=== PATIENT | female | born 1965 | race Hispanic/Latino ===

== ENCOUNTER 2022-07-19 11:23 | Inpatient (IN) | payer MEDICAID, OTHER ==
[~2022-07-19] VITALS: Ht 154.9 cm; Wt 51.7 kg
[~2022-07-19 11:23] MED LIST: BENAZEPRIL HCL10 MG PO; CIPRO250 MG; DICYCLOMINE HCL20 MG PO; GUIATUSS AC SY120 ML; LEVOTHYROXINE25 MCG PO; LEVOTHYROXINE75 MCG PO; LISINOPRIL10 MG PO; LOMOTIL TABLET1 EACH PO; LORATADINE10 MG PO; MAGNESIUM500 MG PO; MEDROL4 MG/DOSE-; METHOCARBAMOL750 MG PO; NAPROXEN500 M1 PO; OMEGA 3 FISH O1 EACH PO; PAROXETINE HCL10 MG PO; PHENERGAN25 MG/1 ML PO; PRILOSEC20 MG PO; VITAMIN D35000 UNIT PO; ZINC CARNOSINE PO
[2022-07-19] MEDS ORDERED: SODIUM CHLORIDE FLUSH 10 ML SYR IV PRN (11:30)
[2022-07-19 11:45] LABS: BASOPHILS # (AUTO) 0.1 (0.0-0.1); EOSINOPHILS # (AUTO) 0.2 (0.0-0.4); EOSINOPHILS % 2.5 % (0.0-6.0); HEMATOCRIT 43.5 % (34.2-44.1); HEMOGLOBIN 15.2 g/dL (12.0-16.0); LYMPHOCYTES # (AUTO) 1.8 (1.0-3.2); LYMPHOCYTES % 27.1 % (18.0-39.1); MEAN CORPUSCULAR HEMOGLOBIN 32.4 pg (28-32); MEAN CORPUSCULAR HGB CONC 34.9 g/dL (31-35); MEAN CORPUSCULAR VOLUME 92.8 fL (81-99); MONOCYTES # (AUTO) 0.7 (0.2-0.8); MONOCYTES % 10.3 % (4.4-11.3); NEUTROPHILS # (AUTO) 3.9 (2.1-6.9); NEUTROPHILS % 58.7 % (38.7-80.0); PLATELET COUNT 205 x10e3/uL (140-360); RED BLOOD COUNT 4.69 x10e6/uL (3.6-5.1); RED CELL DISTRIBUTION WIDTH 12.3 % (11.7-14.4)
[2022-07-19] MEDS ORDERED: ASPIRIN 81 MG CHEW TAB PO ONE ×2 (11:45→15:15)
[2022-07-19 12:15] LABS: ALBUMIN 4.1 g/dL (3.5-5.0); ALBUMIN/GLOBULIN RATIO 1.3 (0.8-2.0); ANION GAP 15.3 mmol/L (8-16); CALCIUM 9.4 mg/dL (8.4-10.2); CREATININE, SERUM 0.66 mg/dL (0.57-1.11); POTASSIUM 4.3 mmol/L (3.5-5.1)
[2022-07-19] MEDS ORDERED: IOPAMIDOL 370 MG/ML 100 ML INFUS..BTL INJ ONE (12:39)
[2022-07-19] MEDS ORDERED: SODIUM CHLORIDE FLUSH 10 ML SYR INJ PRN (15:15)
[2022-07-19] MEDS ORDERED: Morphine 2mg Syringe 2 MG/ML SYR IV PRN (15:15)
[2022-07-19] MEDS: ONDANSETRON HCL INJ 2MG/ML 2ML 2 MG/ML VIAL IV PRN (15:31)
[2022-07-19] MEDS: HYDROCODONE/APAP 5MG-325MG TAB PO PRN ×2 (15:40→22:55)
[2022-07-19 16:07] LABS: CREATINE KINASE 75 IU/L (29-168)
[2022-07-19 17:40] VITALS: BP 131/78; PULSE 77; RESP 16; TEMP 97.7; O2SAT 100
[2022-07-19] MEDS ORDERED: ALBUTEROL2.5 MG/3 M (18:38)
[2022-07-19] MEDS ORDERED: OMEPRAZOLE40 MG PO (18:38)
[2022-07-19] MEDS ORDERED: VENTOLIN HFA18 GM INH (18:38)
[2022-07-19] MEDS ORDERED: ADVAIR 500/501 EA INH (18:38)
[2022-07-19] MEDS ORDERED: HYDROCODON-ACE1 EA12 PO (18:38)
[2022-07-19] MEDS ORDERED: BACLOFEN20 MG PO (18:38)
[2022-07-19] MEDS ORDERED: ATORVASTATIN CA10 MG PO (18:38)
[2022-07-19] MEDS ORDERED: VITAMIN D250 MCG PO (18:38)
[2022-07-19] MEDS ORDERED: PROVENTIL HFA6.7 GM INH (18:38)
[2022-07-19] MEDS ORDERED: LEVSIN0.125 MG PO (18:38)
[2022-07-19] MEDS ORDERED: HYDROXYZINE HCL25 MG PO (18:38)
[2022-07-19] MEDS ORDERED: LEVOTHYROXINE88 MCG PO (18:38)
[2022-07-19] MEDS ORDERED: LISINOPRIL5 MG PO (18:38)
[2022-07-19] MEDS ORDERED: ONDANSETRON ODT8 MG PO (18:38)
[2022-07-19 20:08] VITALS: BP 117/75; PULSE 77; RESP 18; TEMP 98.2; O2SAT 98
[2022-07-19] MEDS: ATORVASTATIN 40 MG TAB PO SCH ×3 (20:40→21:00)
[2022-07-20] VITALS (7 sets, daily range): BP systolic 98–130; BP diastolic 65–81; PULSE 67–75; RESP 17–20; TEMP 97.8–98.8; O2SAT 97–100
[2022-07-20] MEDS: ONDANSETRON HCL INJ 2MG/ML 2ML 2 MG/ML VIAL IV PRN ×4 (03:48→21:04)
[2022-07-20] MEDS: HYDROCODONE/APAP 5MG-325MG TAB PO PRN ×3 (05:43→21:04)
[2022-07-20 05:57] LABS: BASOPHILS # (AUTO) 0.1 (0.0-0.1); BASOPHILS % 1.3 % (0.0-1.0); EOSINOPHILS # (AUTO) 0.3 (0.0-0.4); EOSINOPHILS % 5.6 % (0.0-6.0); HEMATOCRIT 42.6 % (34.2-44.1); HEMOGLOBIN 14.4 g/dL (12.0-16.0); LYMPHOCYTES # (AUTO) 2.2 (1.0-3.2); LYMPHOCYTES % 40.2 % (18.0-39.1); MEAN CORPUSCULAR HGB CONC 33.8 g/dL (31-35); MEAN CORPUSCULAR VOLUME 94.7 fL (81-99); MONOCYTES # (AUTO) 0.6 (0.2-0.8); MONOCYTES % 10.3 % (4.4-11.3); NEUTROPHILS # (AUTO) 2.3 (2.1-6.9); PLATELET COUNT 197 x10e3/uL (140-360); RED CELL DISTRIBUTION WIDTH 12.3 % (11.7-14.4)
[2022-07-20 06:28] LABS: ALBUMIN 3.8 g/dL (3.5-5.0); ALBUMIN/GLOBULIN RATIO 1.2 (0.8-2.0); CALCIUM 9.3 mg/dL (8.4-10.2); CREATININE, SERUM 0.67 mg/dL (0.57-1.11)
[2022-07-20 06:57] LABS: CREATINE KINASE MB 0.7 ng/mL (0-5.0)
[2022-07-20] MEDS: ATORVASTATIN 40 MG TAB PO SCH (21:00)
[2022-07-21] VITALS (10 sets, daily range): BP systolic 98–129; BP diastolic 61–85; PULSE 66–82; RESP 17–20; TEMP 97.1–98.6; O2SAT 96–100
[2022-07-21] MEDS: HYDROCODONE/APAP 5MG-325MG TAB PO PRN ×4 (03:03→21:48)
[2022-07-21] MEDS: ONDANSETRON HCL INJ 2MG/ML 2ML 2 MG/ML VIAL IV PRN ×4 (03:18→21:48)
[2022-07-21 06:51] LABS: BASOPHILS # (AUTO) 0.1 (0.0-0.1); BASOPHILS % 1.3 % (0.0-1.0); EOSINOPHILS # (AUTO) 0.3 (0.0-0.4); EOSINOPHILS % 4.8 % (0.0-6.0); HEMATOCRIT 43.5 % (34.2-44.1); HEMOGLOBIN 14.6 g/dL (12.0-16.0); LYMPHOCYTES # (AUTO) 2.4 (1.0-3.2); LYMPHOCYTES % 34.4 % (18.0-39.1); MEAN CORPUSCULAR HEMOGLOBIN 31.7 pg (28-32); MEAN CORPUSCULAR HGB CONC 33.6 g/dL (31-35); MEAN CORPUSCULAR VOLUME 94.6 fL (81-99); MONOCYTES # (AUTO) 0.7 (0.2-0.8); MONOCYTES % 10.5 % (4.4-11.3); NEUTROPHILS # (AUTO) 3.4 (2.1-6.9); NEUTROPHILS % 48.4 % (38.7-80.0); PLATELET COUNT 210 x10e3/uL (140-360); RED CELL DISTRIBUTION WIDTH 12.1 % (11.7-14.4)
[2022-07-21 07:06] LABS: CREATINE KINASE MB 0.7 ng/mL (0-5.0)
[2022-07-21 07:07] LABS: ALBUMIN/GLOBULIN RATIO 1.3 (0.8-2.0); ANION GAP 12.9 mmol/L (8-16); CALCIUM 9.3 mg/dL (8.4-10.2); CREATININE, SERUM 0.76 mg/dL (0.57-1.11); POTASSIUM 3.9 mmol/L (3.5-5.1)
[2022-07-21] MEDS ORDERED: HYOSCYAMINE 0.125 MG TAB PO PRN (16:15)
[2022-07-21] MEDS ORDERED: HYDROXYZINE HCL 25 MG TAB PO PRN (16:15)
[2022-07-21] MEDS: SALMETEROL/FLUTICASONE 500/50 INH SCH ×2 (17:00→20:40)
[2022-07-21] MEDS: PANTOPRAZOLE SOD 40 MG TABEC PO SCH (17:30)
[2022-07-21] MEDS: ATORVASTATIN 40 MG TAB PO SCH (20:38)
[2022-07-21] MEDS: BACLOFEN 10 MG TAB PO SCH (20:39)
[2022-07-22] VITALS (9 sets, daily range): BP systolic 119–136; BP diastolic 73–88; PULSE 71–96; RESP 16–18; TEMP 97.5–98.6; O2SAT 95–100
[2022-07-22] MEDS: ONDANSETRON HCL INJ 2MG/ML 2ML 2 MG/ML VIAL IV PRN ×4 (04:25→23:11)
[2022-07-22] MEDS: HYDROCODONE/APAP 5MG-325MG TAB PO PRN ×4 (04:26→23:12)
[2022-07-22] MEDS: LEVOTHYROXINE SODIUM 88 MCG TAB PO SCH (06:10)
[2022-07-22] MEDS: PANTOPRAZOLE SOD 40 MG TABEC PO SCH ×2 (06:10→08:25)
[2022-07-22 06:51] LABS: BASOPHILS # (AUTO) 0.1 (0.0-0.1); BASOPHILS % 1.1 % (0.0-1.0); EOSINOPHILS # (AUTO) 0.3 (0.0-0.4); HEMATOCRIT 44.4 % (34.2-44.1); HEMOGLOBIN 15.1 g/dL (12.0-16.0); LYMPHOCYTES # (AUTO) 1.9 (1.0-3.2); LYMPHOCYTES % 30.5 % (18.0-39.1); MEAN CORPUSCULAR HEMOGLOBIN 31.9 pg (28-32); MEAN CORPUSCULAR VOLUME 93.7 fL (81-99); MONOCYTES # (AUTO) 0.7 (0.2-0.8); MONOCYTES % 11.1 % (4.4-11.3); NEUTROPHILS # (AUTO) 3.2 (2.1-6.9); PLATELET COUNT 205 x10e3/uL (140-360); RED BLOOD COUNT 4.74 x10e6/uL (3.6-5.1); RED CELL DISTRIBUTION WIDTH 11.6 % (11.7-14.4)
[2022-07-22 07:27] LABS: ALBUMIN 4.2 g/dL (3.5-5.0); ALBUMIN/GLOBULIN RATIO 1.3 (0.8-2.0); ANION GAP 14.1 mmol/L (8-16); CALCIUM 9.5 mg/dL (8.4-10.2); CREATININE, SERUM 0.7 mg/dL (0.57-1.11); POTASSIUM 4.1 mmol/L (3.5-5.1)
[2022-07-22] MEDS: SALMETEROL/FLUTICASONE 500/50 INH SCH ×2 (07:50→19:20)
[2022-07-22] MEDS: BACLOFEN 10 MG TAB PO SCH ×3 (08:24→20:41)
[2022-07-22] MEDS: ATORVASTATIN 40 MG TAB PO SCH (08:25)
[2022-07-22] MEDS ORDERED: MECLIZINE HCL 12.5 MG TAB PO PRN (12:00)
[2022-07-23] VITALS (10 sets, daily range): BP systolic 103–137; BP diastolic 71–86; PULSE 71–85; RESP 16–18; TEMP 97.7–98.4; O2SAT 96–100
[2022-07-23] MEDS: LEVOTHYROXINE SODIUM 88 MCG TAB PO SCH (06:08)
[2022-07-23] MEDS: PANTOPRAZOLE SOD 40 MG TABEC PO SCH ×2 (06:08→17:22)
[2022-07-23] MEDS: SALMETEROL/FLUTICASONE 500/50 INH SCH ×2 (06:56→19:45)
[2022-07-23] MEDS: ONDANSETRON HCL INJ 2MG/ML 2ML 2 MG/ML VIAL IV PRN ×3 (07:23→20:10)
[2022-07-23] MEDS: HYDROCODONE/APAP 5MG-325MG TAB PO PRN (07:23)
[2022-07-23] MEDS: ATORVASTATIN 40 MG TAB PO SCH (09:44)
[2022-07-23] MEDS ORDERED: POLYETHYLENE GLYCOL 3350 17 GM PACK PO PRN (10:00)
[2022-07-23] MEDS: HYDROCODONE/APAP 7.5MG-325MG 1 EA TAB PO PRN ×2 (13:32→20:10)
[2022-07-23] MEDS: BACLOFEN 10 MG TAB PO SCH ×2 (17:22→20:10)
[2022-07-24] VITALS (7 sets, daily range): BP systolic 120–147; BP diastolic 78–86; PULSE 76–86; RESP 17–20; TEMP 97.9–98.4; O2SAT 96–99
[2022-07-24] MEDS: ONDANSETRON HCL INJ 2MG/ML 2ML 2 MG/ML VIAL IV PRN ×2 (03:11→09:35)
[2022-07-24] MEDS: HYDROCODONE/APAP 7.5MG-325MG 1 EA TAB PO PRN ×2 (03:11→09:34)
[2022-07-24] MEDS: LEVOTHYROXINE SODIUM 88 MCG TAB PO SCH (05:18)
[2022-07-24 05:31] LABS: BASOPHILS # (AUTO) 0.1 (0.0-0.1); BASOPHILS % 0.9 % (0.0-1.0); EOSINOPHILS # (AUTO) 0.2 (0.0-0.4); EOSINOPHILS % 3.6 % (0.0-6.0); HEMATOCRIT 43.8 % (34.2-44.1); HEMOGLOBIN 14.9 g/dL (12.0-16.0); LYMPHOCYTES # (AUTO) 1.5 (1.0-3.2); LYMPHOCYTES % 24.2 % (18.0-39.1); MEAN CORPUSCULAR HEMOGLOBIN 32.3 pg (28-32); MEAN CORPUSCULAR VOLUME 94.8 fL (81-99); MONOCYTES # (AUTO) 0.8 (0.2-0.8); MONOCYTES % 13.3 % (4.4-11.3); NEUTROPHILS # (AUTO) 3.7 (2.1-6.9); NEUTROPHILS % 57.7 % (38.7-80.0); PLATELET COUNT 196 x10e3/uL (140-360); RED BLOOD COUNT 4.62 x10e6/uL (3.6-5.1); RED CELL DISTRIBUTION WIDTH 11.9 % (11.7-14.4)
[2022-07-24 05:49] LABS: ALBUMIN 4.3 g/dL (3.5-5.0); ALBUMIN/GLOBULIN RATIO 1.3 (0.8-2.0); ANION GAP 11.8 mmol/L (8-16); CALCIUM 9.6 mg/dL (8.4-10.2); CREATININE, SERUM 0.81 mg/dL (0.57-1.11); MAGNESIUM 2.3 MG/DL (1.3-2.1); PHOSPHORUS 4.6 MG/DL (2.3-4.7); POTASSIUM 4.8 mmol/L (3.5-5.1)
[2022-07-24] MEDS: PANTOPRAZOLE SOD 40 MG TABEC PO SCH (07:30)
[2022-07-24] MEDS: SALMETEROL/FLUTICASONE 500/50 INH SCH (07:51)
[2022-07-24] MEDS ORDERED: MECLIZINE HCL12.5 MG PO (08:21)
[2022-07-24] MEDS: BACLOFEN 10 MG TAB PO SCH (09:33)
[2022-07-24] MEDS: ATORVASTATIN 40 MG TAB PO SCH (09:33)
[2022-07-24] MEDS ORDERED: ONDANSETRON ODT4 MG PO (10:15)
== END 2022-07-24 11:10 | disposition home or self-care (01) | DRG 149 ==
LOC: ER 11:28 → ERHOLD 15:13 → MED/SURG3 17:04 → OBSVTOIN 07-21 08:06
PROVIDERS: ADMIT Internal Medicine; ATTEND Internal Medicine
DX: R42 Dizziness and giddiness (principal); R07.9 Chest pain, unspecified; I10 Essential (primary) hypertension; E78.5 Hyperlipidemia, unspecified; K21.9 Gastro-esophageal reflux disease without esophagitis; J44.9 Chronic obstructive pulmonary disease, unspecified; Z72.0 Tobacco use; M79.7 Fibromyalgia; M54.9 Dorsalgia, unspecified; R51.9 Headache, unspecified
CPT/HCPCS: 0223U; 36415; 70551; 71045; 71260; 80053; 82550; 82553; 83735; 84100; 84484; 85025; 93005; 93306; 93880; 93971; 94664; 94799; 95819; 99285; G0378; J2405; Q9967